=== PATIENT | female | born 1945 | race Caucasian/White ===

== ENCOUNTER 2017-03-07 09:00 | Emergency (ER) | payer OTHER ==
[~2017-03-07] VITALS: Wt 72.7 kg
[2017-03-07] MEDS ORDERED: KETOROLAC 30 MG INJ IM STA (11:17)
[2017-03-07] MEDS ORDERED: NAPR-260 PO (11:46)
[2017-03-07] MEDS ORDERED: TRAM50TA2 PO (11:46)
--- NOTE | 2017-03-07 11:52 | ERD ---
ER Documentation Chief Complaint Date/Time DATE: 03/07/17 TIME: 11:49 Chief Complaint knee pain HPI This 71-year-old female presents the emergency department today complaining of right knee pain for the past couple of years. States it is worse over the past 4 days she has taken ibuprofen and Tylenol with no improvement in symptoms. States that she has had an MRI in the past and was told that she has problems with her ligaments and need surgery. States that the pain goes down into her leg. She did not follow-up with her surgeon. She has pain with bending her knee. And has been walking more recently. Denies any fevers or chills. Denies any new trauma. Denies any chest pain or shortness of breath per ROS All systems reviewed and are negative except as per history of present illness. Medications Home Meds Active Scripts Naproxen* (Naprosyn*) 500 Mg Tablet, 500 MG PO BID Y for PAIN AND/OR INFLAMMATION, #30 TAB Prov:ISMAEL MCKINNON PA-C 03/07/17 Tramadol HCl (Tramadol HCl) 50 Mg Tablet, 50 MG PO Q4 Y for PAIN, #20 TAB Prov:ISMAEL MCKINNON PA-C 03/07/17 PMhx/Soc History of Surgery: No Anesthesia Reaction: No Hx Neurological Disorder: No Hx Respiratory Disorders: No Hx Cardiac Disorders: No Hx Psychiatric Problems: No Hx Miscellaneous Medical Probl: Yes (thyroid, Htn) Hx Alcohol Use: No Hx Substance Use: No Hx Tobacco Use: No Smoking Status: Never smoker Physical Exam Vitals Vital Signs Date Time Temp Pulse Resp B/P Pulse Ox O2 Delivery O2 Flow Rate FiO2 03/07/17 10:36 97.0 105 20 160/77 98 Physical Exam Const: No acute distress Head: Atraumatic Eyes: Normal Conjunctiva ENT: Normal External Ears, Nose and Mouth. Neck: Full range of motion..~ No meningismus. Resp: Clear to auscultation bilaterally Cardio: Regular rate and rhythm, no murmurs Abd: Soft, non tender, non distended. Normal bowel sounds Skin: No petechiae or rashes MSK: Right knee with no obvious deformity. Mild effusion. No ecchymosis. Full active range of motion. Pulses 2+. Distal neurovascularly intact. No calf pain. Neur: Awake and alert Psych: Normal Mood and Affect Results 24 hrs Current Medications Medications (Trade) Dose Ordered Sig/Titi Route PRN Reason Start Time Stop Time Status Last Admin Dose Admin Ketorolac Tromethamine (Toradol) 30 mg ONCE STAT IM 03/07/17 11:17 03/07/17 11:18 DC 03/07/17 11:34 Procedures/MDM This 71-year-old female who presents to the emergency department today complaining of knee pain for quite some time and worse over the past 4 days. Patient appears to have acute on chronic knee pain. Cording to the patient she has had an MRI in the past but did not follow-up with her surgeon despite being told that she needed surgery for ligament damage and arthritis. Patient was wanting something for pain. Do not feel the patient requires repeat imaging at this time given patient has a known diagnosis and she has had no new trauma. Patient is afebrile and otherwise well-appearing. She is slightly tachycardic. There is no erythema or warmth and have low suspicion for septic joint or gout. Patient has no calf tenderness and no chest pain or shortness of breath. Low suspicion for DVT. Do not feel the patient requires laboratory workup or further imaging at this time. Patient was given Toradol injection here in the emergency department. She will begin a very short course of tramadol for home as well as Naprosyn. She was instructed to follow back up with her primary care physician and surgeon for further evaluation and management. At this time the patient is stable for discharge and outpatient management. Patient should follow up with their PCP in the next 1-2 days. They may return to the emergency department sooner for any persistent or worsening of symptoms. Patient understood and agreed with the plan. Departure Diagnosis: Primary Impression: Knee pain Laterality: right Chronicity: chronic Qualified Code: M25.561 - Chronic pain of right knee Condition: Fair Patient Instructions: Knee Pain, Uncertain Cause Referrals: your PCP [facility] Hours: Mon-Fri 9:00 AM - 5:00 PM Additional Instructions: Llame al doctor PIOTR y mauricio juliana PAU PARA DENTRO DE 1-2 REDDY.Dgale a la secretaria que nosotros le instruimos hacer esta pau.Avise o llame si elizondo condicin se empeora antes de la pau. Regresa aqui si peor o no mejor. Make an appointment with product development specialist Take tramadol for severe pain otherwise take Tylenol or Naprosyn or Motrin ISMAEL MCKINNON PA-C Mar 07, 2017 11:52
== END 2017-03-07 12:07 | disposition home or self-care (01) ==
LOC: FTE 10:34
DX: M25.561 Pain in right knee (principal); I10 Essential (primary) hypertension
CPT/HCPCS: 96372; 99284; J1885